=== PATIENT | female | born 1965 | race Caucasian/White ===

== ENCOUNTER 2023-11-23 15:13 | Emergency (ER) | payer MEDICAID ==
[~2023-11-23] VITALS: Ht 152.4 cm; Wt 69.4 kg
[2023-11-23 16:00] VITALS: BP 167/83; PULSE 74; RESP 15; TEMP 98; O2SAT 98
[2023-11-23 17:31] VITALS: BP 167/83; PULSE 74; RESP 15; TEMP 98; O2SAT 98
== END 2023-11-23 17:31 | disposition home or self-care (01) ==
LOC: MED 15:13
DX: M25.531 Pain in right wrist (principal)
CPT/HCPCS: 73110; 99283